=== PATIENT | male | born 1940 ===

== ENCOUNTER 2017-09-10 07:27 | Day surgery (SDC) | payer MEDICARE ==
[2017-09-10 08:34] VITALS: BMI 26.2
[2017-09-10] MEDS ORDERED: Iohexol 240 200 ML ONE (09:07)
[2017-09-10] MEDS ORDERED: cefTRIAXone (Rocephin) 1 gm Inj ONE (09:07)
[2017-09-10] MEDS ORDERED: Midazolam 2 MG/2 ML VIAL ONE (09:08)
[2017-09-10] MEDS ORDERED: Lidocaine 2% Jelly (Uro-Jet) ONE (09:08)
[2017-09-10] MEDS ORDERED: Propofol 10 mg/ml Inj (20 ML) ONE (09:08)
[2017-09-10] MEDS ORDERED: Sevoflurane - Inhalation Anesthetic Liq (250 ml) ONE (09:09)
[2017-09-10] MEDS ORDERED: ePHEDrine 50 mg/ml Inj ONE (09:23)
[2017-09-10] MEDS ORDERED: Lactated Ringer's 1,000 ML IV ONE (09:23)
[2017-09-10] MEDS ORDERED: cefTRIAXone (Rocephin) 1 gm Inj IVPB ONE (09:28)
[2017-09-10] MEDS ORDERED: HYDROmorphone 0.5 mg/0.5 ml ISec IVP PRN (10:27)
[2017-09-10] MEDS ORDERED: Lactated Ringer's 1,000 ML IV SCH (10:30)
[2017-09-10 12:59] VITALS: RESP 18
[2017-09-10 14:42] VITALS: BP 116/56; PULSE 49; TEMP 97.7; O2SAT 98
--- NOTE | 2017-10-02 21:15 | OP ---
PROCEDURE DATE: 09/10/2017 PREOPERATIVE DIAGNOSIS: Benign prostatic hypertrophy. POSTOPERATIVE DIAGNOSIS: Benign prostatic hypertrophy. PROCEDURE PERFORMED: GreenLight laser of the prostate. DESCRIPTION OF PROCEDURE: The patient was placed on the operating room table in dorsal lithotomy position. The area of the groin was draped and prepped in a sterile manner. He was given general anesthesia. At this time under direct vision, I inserted a laser scope from the urethra into the bladder. There was no evidence of any urethral occlusion. At the level of the prostate, it was noted to be trilobar and obstructing. Under direct vision again, I got into the bladder, the bladder wall itself was clear. The ureteral were seen and now I deployed the laser fiber through this laser scope and using 80 alvarez of power, I demarcated the distal portion of the resection. Following this, first the middle lobe and then right and left lateral lobes. At the end of the procedure, there was very wide opening into the bladder from the level of the verumontanum, which was then circumferentially intact. Ureteral orifices were reidentified at the end of the procedure. I estimated a blood loss to be less than 20 mL. The patient then had a #22 three-way Chu catheter inserted. CBI was begun. The urine outflow was clear. The patient was taken from the operating room in good condition. Suraj Lozano MD
== END 2017-09-10 15:00 | disposition home or self-care (01) ==
LOC: H.OPSURG 07:27
PROVIDERS: ATTEND Urology
DX: N40.0 Benign prostatic hyperplasia without lower urinary tract symptoms (principal); K21.9 Gastro-esophageal reflux disease without esophagitis
CPT/HCPCS: 52648; J0696; J2001; J2250; J2704; J2765; J3010; J7030; J7120; Q9966

== ENCOUNTER 2017-11-29 08:54 | Emergency (ER) | payer MEDICARE ==
[2017-11-29 08:59] VITALS: BMI 25.8
[2017-11-29 09:01] VITALS: TEMP 97.9; O2SAT 97
[2017-11-29 10:23] LABS: BASO % 0.2 % (0.0-2.0); EOS % 0.3 % (0.0-4.0); HEMOGLOBIN 13.1 g/dL (12.0-18.0); LYMPH # 0.8 K/uL (1.0-4.3); LYMPH % 7.3 % (20.0-40.0); MEAN CELL VOLUME 89.1 fl (80.0-94.0); MEAN CORPUSCULAR HEMOGLOBIN 30.4 pg (27.0-31.0); MEAN CORPUSCULAR HGB CONC 34.2 g/dL (33.0-37.0); MEAN PLATELET VOLUME 8.5 fl (7.2-11.7); MONO # 0.7 K/uL (0.0-0.8); MONO % 6.7 % (0.0-10.0); NEUT # 8.8 K/uL (1.8-7.0); NEUT % 85.5 % (50.0-75.0); NRBC % 0.1 % (0.0-0.0); PLATELET COUNT 204 K/uL (130-400); RBC 4.31 Mil/uL (4.40-5.90); RED CELL DISTRIBUTION WIDTH 13.6 % (11.5-14.5); WHITE BLOOD COUNT 10.3 K/uL (4.8-10.8)
[2017-11-29 10:25] LABS: ALB/GLOB RATIO 1.2 (1.0-2.1); ALBUMIN 3.9 g/dL (3.5-5.0); ALT/SGPT 31 U/L (21-72); AST/SGOT 30 U/L (17-59); BLOOD UREA NITROGEN 19 mg/dl (9-20); CALCIUM 8.9 mg/dL (8.4-10.2); GFR AFRICAN-AMERICAN > 60; GFR NON-AFRICAN AMERICAN > 60
--- NOTE | 2017-11-29 10:58 | ED PDOC ---
HPI: Male Pain Time Seen by Provider: 11/29/17 09:00 Chief Complaint (Nursing): Male Genitourinary Chief Complaint (Provider): Male Genitourinary Onset/Duration Of Symptoms: Hrs (x12) Additional Complaint(s): Patient is a 76 y/o male with a medical history of coagulation disorder as well as prostate problems who presents to the ED complaining of urinary retention, onset since last night at 22:00. Patient had a procedure for his prostate enlargement performed by Dr. lozano and after speaking with Dr. lozano patient decided to come to the ER. He has no other symptoms. PMD: Trent Pineda Past Medical History Reviewed: Historical Data, Nursing Documentation, Vital Signs Vital Signs: Last Vital Signs Temp 97.9 F 11/29/17 08:59 Pulse 75 11/29/17 08:59 Resp 17 11/29/17 08:59 BP 189/86 H 11/29/17 08:59 Pulse Ox 97 11/29/17 08:59 - Medical History PMH: Benign Prostatic Hyperplasia Denies: Fractures - Surgical History Surgical History: Cholecystectomy (10 yrs ago) Other surgeries: Prostate operation - Family History Family History: States: Unknown Family Hx - Social History Current smoker - smoking cessation education provided: No Alcohol: None Drugs: Denies - Home Medications Home Medications: Ambulatory Orders Medication Instructions Recorded Ciprofloxacin [Cipro] 500 mg PO BID 09/10/17 Enoxaparin [Lovenox] 100 mg SQ DAILY 09/10/17 Finasteride [Proscar] 5 mg PO DAILY 09/10/17 Omeprazole [Omeprazole] 20 mg PO DAILY 09/10/17 Phenazopyridine [Phenazopyridine 200 mg PO BID 09/10/17 HCl] Nitrofurantoin Macrocrystals 100 mg PO BID #14 cap 11/29/17 [Macrobid] - Allergies Allergies/Adverse Reactions: Allergies Allergy/AdvReac Type Severity Reaction Status Date / Time No Known Allergies Allergy Verified 11/29/17 09:11 Review of Systems ROS Statement: Except As Marked, All Systems Reviewed And Found Negative Constitutional: Negative for: Fever Gastrointestinal: Negative for: Vomiting Genitourinary Male: Positive for: Frequency (unable to urinate) Physical Exam - Reviewed Nursing Documentation Reviewed: Yes Vital Signs Reviewed: Yes - Physical Exam Appears: Positive for: Non-toxic, No Acute Distress Head Exam: Positive for: ATRAUMATIC, NORMOCEPHALIC Skin: Positive for: Normal Color, Warm, Dry Eye Exam: Positive for: EOMI, Normal appearance, PERRL Neck: Positive for: Normal, Painless ROM, Supple Cardiovascular/Chest: Positive for: Regular Rate, Rhythm. Negative for: Murmur Respiratory: Positive for: Normal Breath Sounds. Negative for: Respiratory Distress Gastrointestinal/Abdominal: Positive for: Tenderness (suprapubic tenderness to palpation), Distended (slight ) Back: Positive for: Normal Inspection. Negative for: L CVA Tenderness, R CVA Tenderness, Vertebral Tenderness Extremity: Positive for: Normal ROM. Negative for: Pedal Edema, Deformity Neurologic/Psych: Positive for: Alert, Oriented. Negative for: Motor/Sensory Deficits - Laboratory Results Result Diagrams: 11/29/17 10:01 11/29/17 10:01 - ECG O2 Sat by Pulse Oximetry: 97 (RA) Pulse Ox Interpretation: Normal Medical Decision Making Medical Decision Making: Time:09:21 Initial Impression: Urinary retention Initial Plan: --CMP --CBC with differential --Urine C&S --Chu Catheter --Urinalysis Time: :21 --14 [place] Chu catheter placed by RN. 1200 cc urine came out. --Dr. Lozano says patient can follow up with him tomorrow. pt agreeable to that. --borderline uti, elie give abx ----- Scribe Attestation: Documented by Adrian Euceda, acting as a scribe for Alex Can MD Provider Scribe Attestation: All medical record entries made by the Scribe were at my direction and personally dictated by me. I have reviewed the chart and agree that the record accurately reflects my personal performance of the history, physical exam, medical decision making, and the department course for this patient. I have also personally directed, reviewed, and agree with the discharge instructions and disposition. Disposition - Clinical Impression Clinical Impression: Urinary tract infection, Urinary retention - Patient ED Disposition Is Patient to be Admitted: No Counseled Patient/Family Regarding: Studies Performed, Diagnosis, Need For Followup - Disposition Referrals: Suraj Lozano MD [Family Provider] - Disposition: Routine/Home Disposition Time: 11:15 Condition: IMPROVED Additional Instructions: follow up with Dr lozano tomorrow return to the ED with any worsening or concerning symptoms Prescriptions: Nitrofurantoin Macrocrystals [Macrobid] 100 mg PO BID #14 cap Instructions: Urinary Tract Infection, Adult (DC), Urinary Retention (DC) Forms: [employer] ([place])
[2017-11-29 11:08] LABS: URINE BACTERIA RARE (<OCC); URINE BILIRUBIN NEGATIVE (NEGATIVE); URINE BLOOD MODERATE (NEGATIVE); URINE CLARITY SLIGHTY-CLOUDY (Clear); URINE COLOR AMBER (YELLOW); URINE GLUCOSE (UA) NEG (Normal); URINE LEUKOCYTE ESTERASE TRACE Leu/uL (Negative); URINE PROTEIN 30 mg/dL (NEGATIVE)
[2017-11-29 11:30] LABS: BANDS 2 % (0-2); BASOPHIL 1 % (0-2); EOSINOPHIL 1 % (0-7); LYMPHOCYTE 6 % (20-50); MONOCYTE 4 % (0-10); NEUTROPHIL 86 % (42-75); PLATELET ESTIMATE NORMAL (NORMAL); TOTAL CELLS COUNTED 100
[2017-11-29 12:03] VITALS: BP 109/56; PULSE 80; RESP 18
== END 2017-11-29 12:04 | disposition home or self-care (01) ==
LOC: H.ER 08:54
DX: R33.9 Retention of urine, unspecified (principal); N39.0 Urinary tract infection, site not specified; N40.1 Benign prostatic hyperplasia with lower urinary tract symptoms